=== PATIENT | male | born 2000 | race African-American/Black ===

== ENCOUNTER 2022-05-29 14:03 | Emergency (ER) | payer MEDICAID, OTHER ==
[~2022-05-29] VITALS: Ht 188 cm; Wt 66.0 kg
[2022-05-29 15:55] VITALS: BP 114/71
[2022-05-29] MEDS ORDERED: IBUP600T27 PO (16:21)
[2022-05-29] MEDS ORDERED: PROM1SOL4 PO (16:21)
== END 2022-05-29 16:30 | disposition home or self-care (01) ==
LOC: ER 14:03
DX: J06.9 Acute upper respiratory infection, unspecified (principal)
CPT/HCPCS: 71046; 93005